=== PATIENT | male | born 1975 | race Caucasian/White ===

== ENCOUNTER 2018-01-08 16:03 | Emergency (ER) | payer BC ==
[2018-01-08 16:45] VITALS: BP 145/82
--- NOTE | 2018-01-08 17:54 | RAD ---
Indication: Right flank pain, hematuria. CT of the abdomen and pelvis was performed without oral or IV contrast administration. Coronal and sagittal reconstructed images were obtained. There is fullness of the right renal collecting system. There is enlargement of the right kidney. There is mild right hydroureter noted. There is a calculus in the distal right ureter measuring approximately 3 mm. This is approximately 5 cm proximal to the right ureterovesicular junction. The left ureter and left kidneys demonstrate no hydronephrosis. The lung bases demonstrate no pleural fluid, nodules or masses. Heart is of normal size without evidence of pericardial effusion. Liver is normal in size. No focal lesions or intrahepatic duct dilatation is noted. The spleen is normal in size. Common duct is not dilated. The gallbladder demonstrates no calcified gallstones, pericholecystic fluid or wall thickening. The pancreas demonstrates no mass or pancreatic duct dilatation. No adrenal masses are noted. Aorta and inferior vena cava are unremarkable. There is no retroperitoneal adenopathy. No dilated loops of bowel are noted. The colon is filled with stool. The urinary bladder is otherwise unremarkable. Prostate and seminal vesicles are unremarkable. No retroperitoneal or pelvic lymphadenopathy is noted. The bony structures are grossly unremarkable. IMPRESSION: There is a 2 to 3 mm calculus in the distal right ureter at approximately 5.0 cm proximal to the right ureterovesicular junction. There is enlargement of the right kidney with mild to moderate right hydroureter. The left kidney is unremarkable. The remainder of the abdomen and pelvis is unremarkable.
--- NOTE | 2018-01-08 18:23 | UC ---
Abdominal Pain Male HPI - HPI Summary HPI Summary: 42 yo male who comes to clinic with a complaint of right flank pain. This started this morning he's had several episodes the worst episode of severe right now the pain is mild. The pain started high in the right flank and it's moving down towards the right groin. Denies any testicular pain. No fevers. He cannot make the pain worse or better. He's had an appendectomy in the past. No history of kidney stones. He has been able to urinate. - History of Current Complaint Chief Complaint: UCBackPain Stated Complaint: RIGHT SIDE PAIN Time Seen by Provider: 01/08/18 17:06 Pain Intensity: 4 - Allergies/Home Medications Allergies/Adverse Reactions: Allergies Allergy/AdvReac Type Severity Reaction Status Date / Time No Known Allergies Allergy Verified 01/08/18 16:34 Home Medications: Home Medications Colchicine* [Colcrys*] 0.6 mg PO DAILY PRN 01/08/18 [History Confirmed 01/08/18] Diclofenac Sodium EC TAB* [Voltaren EC TAB*] 25 mg PO BID 01/08/18 [History Confirmed 01/08/18] Ibuprofen TAB* [Advil TAB*] 200 mg PO Q6H PRN 01/08/18 [History Confirmed ] PMH/Surg Hx/FS Hx/Imm Hx Previously Healthy: Yes Other Endocrine History: GOUT - Surgical History Surgical History: Yes Surgery Procedure, Year, and Place: APPY - Family History Known Family History: Positive: Hypertension Negative: Diabetes - Social History Alcohol Use: Rare Substance Use Type: None Smoking Status (MU): Never Smoked Tobacco Review of Systems Constitutional: Negative Skin: Negative Eyes: Negative ENT: Negative Respiratory: Negative Cardiovascular: Negative Gastrointestinal: Abdominal Pain - Right flank Genitourinary: Negative Motor: Negative Neurovascular: Negative Musculoskeletal: Negative Neurological: Negative Psychological: Negative Is Patient Immunocompromised?: No All Other Systems Reviewed And Are Negative: Yes Physical Exam Triage Information Reviewed: Yes Appearance: Well-Appearing, Pain Distress - MILD Vital Signs: Initial Vital Signs Temp 98.9 F 01/08/18 16:38 Pulse 72 01/08/18 16:38 Resp 18 01/08/18 16:38 BP 145/82 01/08/18 16:38 Pulse Ox 98 01/08/18 16:38 Vital Signs Reviewed: Yes Eye Exam: Normal ENT Exam: Normal Neck: Positive: Supple Respiratory: Positive: Lungs clear, Normal breath sounds, No respiratory distress Cardiovascular: Positive: RRR Abdomen Description: Positive: Nontender, Soft. Negative: CVA Tenderness (R), CVA Tenderness (L) Bowel Sounds: Positive: Present Musculoskeletal Exam: Normal Neurological Exam: Normal Psychological Exam: Normal Skin Exam: Normal Abd Pain Male Course/Dx - Course Course Of Treatment: Discussed the results of the CT and the urine with the patient. Prescribed Flomax and hydrocodone. He can take ibuprofen. I encouraged him to drink plenty of fluids. I gave him referral to urology. He knows to go to the emergency department if his CONDITion worsens. - Differential Dx/Clinical Impression Provider Diagnoses: RIGHT KIDNEY STONE Discharge - Sign-Out/Discharge Documenting (check all that apply): Patient Departure All imaging exams completed and their final reports reviewed: Yes - Discharge Plan Condition: Stable Disposition: HOME Prescriptions: HYDROcodone/ACETAMIN 5-325 MG* [[place] 5-325 TAB*] 1 tab PO Q4H PRN #20 tab MDD 6 PRN Reason: Pain Tamsulosin CAP* [Flomax CAP*] 0.4 mg PO DAILY #7 cap Patient Education Materials: Kidney Stones (ED), How to Strain Your Urine (ED) Referrals: Ramon Noonan MD [Primary Care Provider] - Davion Morrissey MD [Medical Doctor] - Walt Jose MD [Medical Doctor] - Additional Instructions: FOLLOW UP WITH UROLOGY. GO TO THE EMERGENCY DEPARTMENT FOR ANY WORSENING OF YOUR CONDITION; PAIN, FEVER , YOU FEEL ILL OR QUESTIONS OR CONCERNS. - Billing Disposition and Condition Condition: STABLE Disposition: Home - Attestation Statements Document Initiated by [employer]: Allie
== END 2018-01-08 18:29 | disposition home or self-care (01) ==
LOC: UCCORT 16:03
DX: N20.1 Calculus of ureter (principal); N13.4 Hydroureter; Z90.89 Acquired absence of other organs
CPT/HCPCS: 74176; 81003; 99212; G0463

== ENCOUNTER 2019-02-26 17:26 | Emergency (ER) | payer BC ==
[2019-02-26 17:39] VITALS: BP 141/84
--- NOTE | 2019-02-26 18:21 | UC ---
Cardiac HPI - HPI Summary HPI Summary: 44-year-old male comes in with a chief complaint of chest pain. Several hours ago he had some chest pain left upper chest that lasts for a few seconds. Been having chest pain on and off for several weeks. It's sharp. Usually lasts for a few moments. Occasionally has some tingling in the left arm. Does not feel like he's going to pass out during episodes. No fevers no chills no cough no shortness of breath no nausea no vomiting. No pedal edema or calf pain. Patient does have a history of blood pressure as does his father. - History of Current Complaint Chief Complaint: UCChestPain Stated Complaint: CHEST PAIN Time Seen by Provider: 02/26/19 18:04 Pain Intensity: 2 - Allergy/Home Medications Allergies/Adverse Reactions: Allergies Allergy/AdvReac Type Severity Reaction Status Date / Time No Known Allergies Allergy Verified 02/26/19 17:29 Home Medications: Home Medications Multivitamin with Iron [One Daily with Iron] 1 tab PO DAILY 02/26/19 [History Confirmed 02/26/19] PMH/Surg Hx/FS Hx/Imm Hx Previously Healthy: Yes Cardiovascular History: Hypertension - Surgical History Surgical History: Yes Surgery Procedure, Year, and Place: APPY - Family History Known Family History: Positive: Hypertension Negative: Diabetes - Social History Alcohol Use: Rare Substance Use Type: None Smoking Status (MU): Never Smoked Tobacco Review of Systems All Other Systems Reviewed And Are Negative: Yes Constitutional: Positive: Negative Skin: Positive: Negative Eyes: Positive: Negative ENT: Positive: Negative Respiratory: Positive: Negative Cardiovascular: Positive: Chest Pain Gastrointestinal: Positive: Negative Motor: Positive: Negative Neurovascular: Positive: Negative Musculoskeletal: Positive: Negative Neurological: Positive: Negative Psychological: Positive: Negative Is Patient Immunocompromised?: No Physical Exam Triage Information Reviewed: Yes Appearance: Well-Appearing, No Pain Distress, Well-Nourished Vital Signs: Initial Vital Signs Temp 98.1 F 02/26/19 17:32 Pulse 69 02/26/19 17:32 Resp 20 02/26/19 17:32 BP 141/84 02/26/19 17:32 Pulse Ox 98 02/26/19 17:32 Vital Signs Reviewed: Yes Eye Exam: Normal Eyes: Positive: Conjunctiva Clear Neck: Positive: Supple Respiratory: Positive: Lungs clear, Normal breath sounds, No respiratory distress Cardiovascular: Positive: RRR Musculoskeletal: Positive: Strength Intact, ROM Intact, No Edema - NO CALF TENDERNESS Neurological: Positive: Alert, Muscle Tone Normal Psychological: Positive: Age Appropriate Behavior Skin Exam: Normal Diagnostics - EKG Cardiac Rate: NL - AT 1729 Cardiac Rhythm: Sinus: Normal - 68BPM Ectopy: None ST Segment: Normal - Assessment/Plan Course Of Treatment: EKG did not show any signs of ischemia here in clinic. I recommended further evaluation in the emergency department for his chest pain. Patient prefers to go by POV. I did discuss the case with the [facility] emergency department provider. - Clinical Impression Provider Diagnosis: Chest pain Discharge ED - Sign-Out/Discharge Documenting (check all that apply): Patient Departure All imaging exams completed and their final reports reviewed: No Studies - Discharge Plan Condition: Stable Disposition: HOME-RECOMMEND TO ED Patient Education Materials: Chest Pain (ED) Referrals: Ramon Noonan MD [Primary Care Provider] - Additional Instructions: GO DIRECTLY TO THE EMERGENCY DEPARTMENT FOR FURTHER EVALUATION AND CARE OF YOUR CHEST PAIN. - Billing Disposition and Condition Condition: STABLE Disposition: Home-Recommend to ED
== END 2019-02-26 18:29 | disposition home health service (06) ==
LOC: UCCORT 17:26
DX: R07.9 Chest pain, unspecified (principal); R20.2 Paresthesia of skin; I10 Essential (primary) hypertension; Z82.49 Family history of ischemic heart disease and other diseases of the circulatory system
CPT/HCPCS: 93005; 99212; G0463